=== PATIENT | female | born 1990 | race Caucasian/White ===

== ENCOUNTER 2018-02-13 06:14 | Inpatient (IN) ==
[2018-02-13] MEDS ORDERED: ceFAZolin 2,000 MG in PREMIX 1 EACH IV ONE (07:15)
[2018-02-13] MEDS ORDERED: FAMOTIDINE 20 MG/2 ML VIAL IV ONE (07:15)
[2018-02-13] MEDS ORDERED: CITRIC ACID/SODIUM CITRATE 30 ML UDCUP PO ONE (07:15)
[2018-02-13 07:30] LABS: Basophils % 0.3 % (0.0-0.8); Eosinophils # 0.1 10*3/uL (0.0-0.87); Eosinophils % 0.6 % (0.00-10.9); Hematocrit 36.9 VOL% (35.7-47.0); Hemoglobin 12.5 GM/DL (12.0-16.0); Immature Granulocytes % 0.3 %; Immature Granulocytes Absolute 0.02 #; Lymphocytes % 25.4 % (21.3-54.2); Mean Corpuscular HGB Conc 33.9 GM/DL (32-36); Mean Corpuscular Hemoglobin 31 PG (27-34); Mean Platelet Volume 9.4 FL (9.6-12.0); Monocytes # 0.6 10*3/uL (0.11-0.8); Neutrophils # 5.1 10*3/uL (1.4-7.4); Neutrophils % 65.4 % (38.7-73.9); Platelet Count 212 T/CUMM (130-400); Red Blood Count 4.01 MC/CUMM (3.8-5.5); Red Cell Distribution Width 12.8 % (9.3-17.3); White Blood Count 7.8 T/CUMM (4-12)
[2018-02-13] MEDS ORDERED: LACTATED RINGERS 1,000 ML IV SCH (07:30)
[2018-02-13] MEDS ORDERED: LACTATED RINGERS 1,000 ML IV ONE (07:33)
[2018-02-13 07:58] LABS: Alanine Aminotransferase 15 U/L (13-56); Albumin 2.6 G/DL (3.4-5.0); Alkaline Phosphatase 131 U/L (45-117); Aspartate Amino Transferase 18 U/L (0-37); Bilirubin,Total < 0.39 MG/DL (0.2-1.0); Blood Urea Nitrogen 8 MG/DL (7-18); Calcium 8.5 MG/DL (8.5-10.1); Glucose 83 MG/DL (74-106); Osmolality,Calculated 271.7 MOS/KG (273-304); Sodium 138 MMOL/L (136-145); Total Protein 6.6 G/DL (6.4-8.3)
[2018-02-13] MEDS ORDERED: OXYTOCIN 10 UNIT/ML VIAL IM ONE (08:00)
[2018-02-13] MEDS ORDERED: OXYTOCIN/LR 30 UNIT/1,000 ML BAG IV ONE ×2 (08:42→08:59)
[2018-02-13] MEDS ORDERED: OXYTOCIN 30 UNIT in DEXTROSE 5% LACTATED RINGERS 1,000 ML IV ONE (09:00)
[2018-02-13 09:41] LABS: Apearance,Urine Slightly Hazy (Clear); Bacteria,Urine Occasional /HPF (Few); Bilirubin,Urine Negative (Negative); Blood, Urine Negative (Negative); Glucose,Urine (UA) Negative (Negative); Ketones,Urine Negative (Negative); Mucus,Urine Many /LPF (Occasional); Nitrite,Urine Negative (Negative); Protein,Urine 30 MG/DL; RBC,Urine 1 /HPF (0-4); Squamous Epithelial Cell,Urine Occasional /HPF (0-10); Urine Color Amber (Yellow); Urine Specific Gravity 1.019 (1.001-1.035); WBC,Urine 1 /HPF (0-6)
[2018-02-13 09:51] LABS: Barbiturates Screen,Urine Negative (Negative); Benzodiazepines Screen,Urine Negative (Negative); Cannabinoid Screen,Urine Negative (Negative); Opiate Screen,Urine Negative (Negative); Phencyclidine Screen,Urine Negative (Negative)
[2018-02-13] MEDS ORDERED: ONDANSETRON 4 MG/2 ML VIAL IV PRN (09:51)
[2018-02-13] MEDS ORDERED: ACETAMINOPHEN 325 MG TABLET PO PRN (09:51)
[2018-02-13] MEDS ORDERED: OXYTOCIN/LR 20 UNIT/1,000 ML BAG IV ONE (09:51)
[2018-02-13] MEDS ORDERED: fentaNYL 100 MCG/2 ML VIAL ONE (09:55)
[2018-02-13] MEDS ORDERED: MORPHINE 10 MG/10 ML VIAL ONE (09:56)
[2018-02-13] MEDS ORDERED: PHENYLEPHRINE 1 MG/10 ML SYRINGE IV ONE (09:56)
[2018-02-13] MEDS ORDERED: GLYCOPYRROLATE 0.4 MG/2 ML VIAL ONE (09:56)
[2018-02-13] MEDS ORDERED: BUPIVACAINE SPINAL 0.75% 2 ML AMP SPINAL ONE (09:57)
[2018-02-13] MEDS ORDERED: RHO(D) IMMUNE GLOBULIN 300 MCG SYRINGE IM ONE (10:00)
[2018-02-13] MEDS ORDERED: NALOXONE 0.4 MG/ML VIAL IV PRN (10:54)
[2018-02-13] MEDS ORDERED: hydrOXYzine HCL 25 MG/1 ML VIAL IM PRN (10:54)
[2018-02-13] MEDS ORDERED: diphenhydrAMINE 50 MG/1 ML VIAL IV ONE (10:54)
[2018-02-13] MEDS ORDERED: HYDROmorphone PCA 30 MG/30 ML SYRINGE IV SCH (11:00)
[2018-02-13] MEDS ORDERED: METHADONE 10 MG TABLET PO SCH (11:00)
[2018-02-13] MEDS: ceFAZolin 1,000 MG in SYRINGE 1 EACH IV SCH (16:30)
[2018-02-13 17:13] LABS: Hematocrit 32.9 VOL% (35.7-47.0)
[2018-02-13] MEDS: LACTATED RINGERS 1,000 ML IV SCH (20:00)
[2018-02-13] MEDS: DOCUSATE SODIUM 100 MG CAPSULE PO SCH (21:31)
[2018-02-14] MEDS ORDERED: SODIUM CHLORIDE 0.9% 50 ML IV ONE (00:51)
[2018-02-14] MEDS: ceFAZolin 1,000 MG in SYRINGE 1 EACH IV SCH (01:14)
[2018-02-14] MEDS: LACTATED RINGERS 1,000 ML IV SCH ×2 (03:22→04:27)
[2018-02-14 04:47] LABS: Basophils % 0.3 % (0.0-0.8); Eosinophils # 0.1 10*3/uL (0.0-0.87); Eosinophils % 0.6 % (0.00-10.9); Hematocrit 33.8 VOL% (35.7-47.0); Hemoglobin 11.2 GM/DL (12.0-16.0); Immature Granulocytes % 0.3 %; Immature Granulocytes Absolute 0.03 #; Lymphocytes # 1.4 10*3/uL (1.4-4.0); Lymphocytes % 13.6 % (21.3-54.2); Mean Corpuscular HGB Conc 33.1 GM/DL (32-36); Mean Corpuscular Hemoglobin 31 PG (27-34); Mean Corpuscular Volume 93.9 FL (87-102); Mean Platelet Volume 10.2 FL (9.6-12.0); Monocytes # 1.2 10*3/uL (0.11-0.8); Monocytes % 11.1 % (1.7-12.7); Neutrophils # 7.8 10*3/uL (1.4-7.4); Neutrophils % 74.1 % (38.7-73.9); Platelet Count 156 T/CUMM (130-400); Red Cell Distribution Width 12.7 % (9.3-17.3); White Blood Count 10.6 T/CUMM (4-12)
[2018-02-14] MEDS: METOCLOPRAMIDE 10 MG/2 ML VIAL IV SCH ×3 (05:40→22:03)
[2018-02-14] MEDS: IBUPROFEN 800 MG TABLET PO PRN ×2 (05:44→17:05)
[2018-02-14] MEDS: METHADONE 10 MG TABLET PO SCH (05:48)
[2018-02-14] MEDS: MULTIVITAMIN (PRENATAL) TABLET PO SCH (08:41)
[2018-02-14] MEDS: DOCUSATE SODIUM 100 MG CAPSULE PO SCH ×2 (08:42→22:08)
[2018-02-14] MEDS: MAGNESIUM HYDROXIDE SUSP 30 ML UDCUP PO PRN (22:08)
[2018-02-15] MEDS: METOCLOPRAMIDE 10 MG/2 ML VIAL IV SCH ×3 (00:22→14:29)
[2018-02-15] MEDS: IBUPROFEN 800 MG TABLET PO PRN ×3 (03:14→21:55)
[2018-02-15] MEDS: METHADONE 10 MG TABLET PO SCH (05:36)
[2018-02-15] MEDS ORDERED: BISACODYL 10 MG SUPP RECTAL PRN (05:42)
[2018-02-15] MEDS: MULTIVITAMIN (PRENATAL) TABLET PO SCH (08:45)
[2018-02-15] MEDS: DOCUSATE SODIUM 100 MG CAPSULE PO SCH ×2 (08:45→21:55)
[2018-02-15] MEDS: MAGNESIUM HYDROXIDE SUSP 30 ML UDCUP PO PRN (21:52)
[2018-02-16] MEDS: IBUPROFEN 800 MG TABLET PO PRN (05:31)
[2018-02-16] MEDS: SIMETHICONE CHEW 80 MG TABLET PO PRN ×2 (05:32→08:31)
[2018-02-16] MEDS ORDERED: METHADONE 10 MG TABLET PO SCH (05:33)
[2018-02-16] MEDS ORDERED: NICOTINE 21 MG/24 HR PATCH TRANSDERM PRN (06:56)
[2018-02-16] MEDS ORDERED: INFLUENZA VIRUS VACCINE 0.5 ML SYRINGE IM ONE (08:09)
[2018-02-16] MEDS ORDERED: DIPH/TET/ACEL PERT BOOSTER VACCINE 0.5 ML VIAL IM ONE (08:09)
[2018-02-16] MEDS: DOCUSATE SODIUM 100 MG CAPSULE PO SCH (08:29)
[2018-02-16] MEDS: MULTIVITAMIN (PRENATAL) TABLET PO SCH (08:29)
[2018-02-16] MEDS: MAGNESIUM HYDROXIDE SUSP 30 ML UDCUP PO PRN (08:31)
[2018-02-16 10:34] VITALS: BP 110/73
== END 2018-02-16 11:25 | disposition home or self-care (01) | DRG 540 ==
LOC: N.LDOUT 06:14 → N.LD 06:16 → N.OB 12:25
PROVIDERS: ADMIT Obstetrics & Gynecology; ATTEND Obstetrics & Gynecology
PROC: LDCSECT (ICD-10-PCS; 2018-02-13 08:30)

== ENCOUNTER 2020-06-12 21:54 | Observation (INO) ==
[2020-06-12] MEDS ORDERED: SODIUM CHLORIDE 0.9% 1,000 ML IV STA (22:31)
[2020-06-12] MEDS ORDERED: NALOXONE 0.4 MG/ML VIAL IV ONE (22:32)
[2020-06-12 23:05] LABS: Basophils # 0.1 10*3/uL (0.0-0.2); Basophils % 0.7 % (0.0-0.8); Eosinophils # 0.2 10*3/uL (0.0-0.87); Eosinophils % 3.2 % (0.00-10.9); Hematocrit 38.3 VOL% (35.7-47.0); Immature Granulocytes % 0.3 %; Immature Granulocytes Absolute 0.02 #; Lymphocytes # 2.4 10*3/uL (1.4-4.0); Lymphocytes % 34.9 % (21.3-54.2); Mean Corpuscular HGB Conc 33.9 GM/DL (32-36); Mean Corpuscular Volume 91.8 FL (87-102); Monocytes % 11.2 % (1.7-12.7); Neutrophils % 49.7 % (38.7-73.9); Platelet Count 199 T/CUMM (130-400); Red Blood Count 4.17 MC/CUMM (3.8-5.5); Red Cell Distribution Width 11.9 % (9.3-17.3); White Blood Count 6.8 T/CUMM (4-12)
[2020-06-12] MEDS ORDERED: NALOXONE 0.4 MG/ML VIAL IV STA (23:18)
[2020-06-12 23:22] LABS: Acetaminophen < 2.0 UG/ML (10-30); Salicylate < 2.8 MG/DL (2.8-20)
[2020-06-12 23:25] LABS: Alanine Aminotransferase 19 U/L (13-56); Albumin 3.6 G/DL (3.4-5.0); Alkaline Phosphatase 55 U/L (45-117); Aspartate Amino Transferase 27 U/L (0-37); Blood Urea Nitrogen 10 MG/DL (7-18); Calcium 8.6 MG/DL (8.5-10.1); Carbon Dioxide 29 MMOL/L (21-32); Estimated Glom Filtration Rate 92 ML/MIN; Glucose 84 MG/DL (74-106); Osmolality,Calculated 276.4 MOS/KG (273-304); Potassium 3.8 MMOL/L (3.5-5.1); Sodium 140 MMOL/L (136-145); Total Protein 6.9 G/DL (5.0-7.5)
[2020-06-12 23:27] LABS: Bacteria,Urine Occasional /HPF (Few); Bilirubin,Urine Negative (Negative); Blood, Urine Negative (Negative); Glucose,Urine (UA) Negative (Negative); Ketones,Urine Negative (Negative); Nitrite,Urine Negative (Negative); Protein,Urine Negative; RBC,Urine 3 /HPF (0-4); Squamous Epithelial Cell,Urine Occasional /HPF (0-10); Urine Appearance Slightly Hazy (Clear); Urine Color Straw (Yellow); Urine Specific Gravity 1.003 (1.001-1.035); Urine Urobilinogen < 2.0 EU/DL (0.2-1.0); WBC,Urine 2 /HPF (0-6)
[2020-06-12 23:51] LABS: Barbiturates Screen,Urine Negative (Negative); Benzodiazepines Screen,Urine Positive (Negative); Cannabinoid Screen,Urine Negative (Negative); Opiate Screen,Urine Negative (Negative); Phencyclidine Screen,Urine Negative (Negative)
[2020-06-13 00:07] LABS: ABG Base Excess 1.4 MMOL/L (-2.5-2.5); ABG HCO3 27.1 MMOL/L (20-26); ABG Oxygen Saturation 96.8 % (95-100); ABG PCO2 47.4 MM HG (35-48); ABG PH 7.375 (7.35-7.45); ABG PO2 97.5 MM HG (80-95); ABG TCO2 28.6 MMOL/L (23-27)
[2020-06-13] MEDS ORDERED: DEXTROSE 50% 25 GM/50 ML VIAL IV PRN (01:19)
[2020-06-13] MEDS ORDERED: ONDANSETRON 4 MG/2 ML VIAL IV PRN (01:19)
[2020-06-13] MEDS ORDERED: NICOTINE 21 MG/24 HR PATCH TRANSDERM PRN (01:19)
[2020-06-13] MEDS ORDERED: GLUCAGON 1 MG VIAL IM PRN (01:19)
[2020-06-13] MEDS: SODIUM CHLORIDE 0.9% 1,000 ML IV SCH ×2 (02:20→11:11)
[2020-06-13 13:07] VITALS: BP 155/99
== END 2020-06-13 13:00 | disposition home or self-care (01) ==
LOC: EDUNIT# → EDBD → N.ED 21:54 → N.EDINP 21:54 → SUATTDRO 06-13 01:19 → N.EDINP 06-13 02:38 → N.TELEN 06-13 03:39
PROVIDERS: ADMIT Internal Medicine; ATTEND Internal Medicine